=== PATIENT | male | born 1995 | race Caucasian/White ===

== ENCOUNTER 2016-09-01 20:30 | Emergency (ER) | payer BC, MEDICAID ==
[2016-09-01 20:48] VITALS: BP 150/76
--- NOTE | 2016-09-01 21:18 | UC ---
Skin Complaint HPI - HPI Summary HPI Summary: pt is accompanied by mother. Pt reports that he Injected 10 mg of opana on at ~ 1600 in right upper arm . Then injected in left and right antecube spaces with MELISSA. Pt has been not using for the last 6 months then used for the first time again last night. Pt reports that injection sites have become increasingly red and tender over the last 4-8 hours, the left side antebubal space is firm and pt sataes that he woke this moring ant hit the "bump" in right antecubal space and stated that he could tast the "melissa" and felt a "dutton ". He has c/o dry mouth and decreased appetite. - History of Current Complaint Chief Complaint: UCSkin Time Seen by Provider: 09/01/16 21:08 Stated Complaint: LEFT ARM COMPLAINT Hx Obtained From: Patient, Family/Parts Person Onset/Duration: Gradual Onset, Lasting Hours, Still Present Skin Exposure Onset/Duration: Hours Ago Timing: Constant Onset Severity: Mild Current Severity: Moderate Location: Discrete - left and right antecubeal space Character: Redness, Raised, Painful Aggravating: Touch Associated Signs & Symptoms: Positive: Tenderness, Red Streaks Related History: Other: - IV drug use - Allergy/Home Medications Allergies/Adverse Reactions: Allergies Allergy/AdvReac Type Severity Reaction Status Date / Time Penicillins Allergy Hives Verified 09/01/16 20:49 environmental Allergy Runny nose Uncoded 09/01/16 20:49 , itchy eyes Home Medications: Home Medications NK [No Home Medications Reported] 09/01/16 [History Confirmed 09/01/16] Review of Systems Constitutional: Negative Skin: Other - erythema and red streaking, firm moveable "lump" left antecube Eyes: Negative ENT: Other - dry mouth Respiratory: Negative Cardiovascular: Other - rapid heartbeat Gastrointestinal: Negative Genitourinary: Negative Motor: Negative Neurovascular: Negative Musculoskeletal: Negative Neurological: Negative Psychological: Negative All Other Systems Reviewed And Are Negative: Yes PMH/Surg Hx/FS Hx/Imm Hx Previously Healthy: Yes - 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 - Surgical History Surgical History: Yes Surgery Procedure, Year, and Place: graph on leg...tonsilectomy - Family History Known Family History: Positive: Cardiac Disease - Social History Alcohol Use: None Substance Use Type: Synthetic Drugs, Other Substance Use Comment - Amount & Last Used: Opana and Melissa Smoking Status (MU): Never Smoked Tobacco Type: Smokeless Tobacco Physical Exam Triage Information Reviewed: Yes Appearance: Other: - under the influence of drugs Vital Signs: Initial Vital Signs Temp 99.9 F 09/01/16 20:36 Pulse 133 09/01/16 20:36 Resp 24 09/01/16 20:36 BP 150/76 09/01/16 20:36 Pulse Ox 100 09/01/16 20:36 Vital Signs Reviewed: Yes Eyes: Positive: Other: - PERRLA Neck exam: Normal Respiratory Exam: Normal Cardiovascular Exam: Other Cardiovascular: Positive: Tachycardia Musculoskeletal Exam: Normal Neurological Exam: Normal Psychological Exam: Normal Skin Exam: Other - large 6 cm erythematous area left antecube, 32 cm long 1 cm firm moveable mass left antecube; right antecubal area ~ 4-5 cm in diameter Skin: Positive: Other - track lozano left and right antecubal spaces Course/Dx - Course Course Of Treatment: [place] ROSS phoned poison control, recommended that the patient be transferred to Emergency department for further evaluation and treatmentI discussed this with pt and pt's mother and they agreed to go by private car to [facility] ED. - Differential Diagnoses - Skin Complaint Differential Diagnoses: Abscess, Cellulitis - Diagnoses Provider Diagnoses: Cellulitis. abscess. adverse drug reaction. IV drug use - Physician Notification/Consults Discussed Patient Care With: Dr. Mitali Wade Time Discussed With Above Provider: 21:30 Instructed by Provider To: Other - pt was sent by private car to [facility] ED Discharge - Discharge Plan Condition: Stable Disposition: [facility] Discharge Disposition Comment: pt was sent by private car to [facility] Ed for further evluation and treatment. Patient Education Materials: Adverse Drug Reaction (ED), Polysubstance Abuse ( ED), Cellulitis (ED), Abscess (ED) Referrals: ABUNDIO Caballero [Primary Care Provider] -
== END 2016-09-01 21:21 | disposition short-term general hospital (02) ==
LOC: UCCORT 20:30
DX: L03.114 Cellulitis of left upper limb (principal); T50.995A Adverse effect of other drugs, medicaments and biological substances, initial encounter; F11.10 Opioid abuse, uncomplicated
CPT/HCPCS: 99213; G0463

== ENCOUNTER 2016-09-30 18:54 | Emergency (ER) | payer BC, MEDICAID ==
[2016-09-30 19:04] VITALS: BP 137/69
[2016-09-30] MEDS ORDERED: Tetan/Diph/Pertus SYR(Tdap)* 0.5 ML SYR(BOOSTRIX) use SYR IM ONE (19:21)
--- NOTE | 2016-09-30 19:34 | UC ---
Laceration HPI - HPI Summary HPI Summary: patient cut his left middle finger over the PIP joint with a diamond saw operator blade 9 hours prior to arrival, it is superfical and bleeding is controlled. - History Of Current Complaint Chief Complaint: UCLaceration Stated Complaint: LACERATION LEFT MIDDLE FINGER Time Seen by Provider: 09/30/16 18:58 Hx Obtained From: Patient Laceration Location: Finger Mechanism Of Injury: Sharp Trauma Aggravating Factors: Position - Allergies/Home Medications Allergies/Adverse Reactions: Allergies Allergy/AdvReac Type Severity Reaction Status Date / Time Penicillins Allergy Hives Verified 09/30/16 19:03 environmental Allergy Runny nose Uncoded 09/30/16 19:03 , itchy eyes PMH/Surg Hx/FS Hx/Imm Hx Previously Healthy: Yes - Surgical History Surgical History: Yes Surgery Procedure, Year, and Place: graph on leg...tonsilectomy - Family History Known Family History: Positive: Cardiac Disease - Social History Alcohol Use: Occasionally Substance Use Type: Synthetic Drugs, Other Substance Use Comment - Amount & Last Used: Opana and Melissa Smoking Status (MU): Never Smoked Tobacco Type: Smokeless Tobacco Review of Systems Constitutional: Negative Skin: Other - laceration Eyes: Negative ENT: Negative Respiratory: Negative Cardiovascular: Negative Gastrointestinal: Negative Genitourinary: Negative Motor: Negative Neurovascular: Negative Musculoskeletal: Negative Neurological: Negative Psychological: Negative All Other Systems Reviewed And Are Negative: Yes Physical Exam Triage Information Reviewed: Yes Appearance: Well-Appearing, Well-Nourished, Pain Distress Vital Signs: Initial Vital Signs Temp 98.9 F 09/30/16 18:56 Pulse 116 09/30/16 18:56 Resp 20 09/30/16 18:56 BP 137/69 09/30/16 18:56 Vital Signs Reviewed: Yes Eye Exam: Normal ENT Exam: Normal Dental Exam: Normal Neck exam: Normal Respiratory Exam: Normal Cardiovascular Exam: Normal Cardiovascular: Positive: No Murmur, Pulses Normal, Tachycardia Abdominal Exam: Normal Abdomen Description: Positive: Nontender, No Organomegaly, Soft Bowel Sounds: Positive: Present Musculoskeletal Exam: Normal Musculoskeletal: Positive: Strength Intact, ROM Intact, No Edema Neurological Exam: Normal Neurological: Positive: Alert, Muscle Tone Normal Psychological Exam: Normal Skin: Positive: Other - 2 cm laceration over the left track lozano noted on left arm and bilateral hands, patient denies any recent IV drug use, does admit to using in the past. Laceration Repair - Laceration Repair 1 Description: Linear Laceration Size After Repair: Length (cm) - 2 cm Modified For Repair: No Cleansing Completed Via Routine Prep: Yes Irrigation With Pressure Irrigation Device: No Closure Material: Skin Adhesive, SteriStrips Closure Method: Single Layer Suture Of: Skin Laceration Course/Dx - Course/Dx Course Of Treatment: hx obtained, exam performed ,meds reviewed, laceration soaked and glued, 4 steri strips applied tetanus given. - Differential Dx - Laceration/Wound Differental Diagnoses: Laceration Provider Diagnoses: simple laceration to left middle finger Discharge - Discharge Plan Condition: Stable Disposition: HOME Prescriptions: Sulfamethox/Trimethoprim DS* [Bactrim DS 800/160 TAB*] 1 tab PO BID #14 tab Patient Education Materials: Skin Adhesive Care (ED), Laceration (ED) Referrals: ABUNDIO Caballero [Primary Care Provider] - Additional Instructions: 1. keep finger clean and dry, allow the glue and steri strips to fall off on there own. 2. take the medication as prescribed. 3. follow up if you develope any sign of infection, redness, swelling, warmth, unusual drainage. 4. wear the splint for at least 5 days to allow the laceration to heal well.
== END 2016-09-30 19:41 | disposition home or self-care (01) ==
LOC: UCCORT 18:54
DX: S61.213A Laceration without foreign body of left middle finger without damage to nail, initial encounter (principal); W26.8XXA Contact with other sharp object(s), not elsewhere classified, initial encounter; Y93.9 Activity, unspecified; Y92.9 Unspecified place or not applicable; Z23 Encounter for immunization; Z88.0 Allergy status to penicillin
CPT/HCPCS: 12001; 90471; 90715; 99212; G0463

== ENCOUNTER 2017-11-12 12:06 | Emergency (ER) | payer BC, MEDICAID ==
[2017-11-12 12:32] VITALS: BP 125/69
--- NOTE | 2017-11-12 12:42 | UC ---
Hand/Wrist HPI - HPI Summary HPI Summary: 21-year-old male comes to the clinic with a complaint of right hand pain. He closed it in a door 2 days ago. The worst pain is the ulnar aspect over the distal fourth and fifth metacarpals and also the fourth and fifth fingers. There is abrasion over the fifth MCP joint and the fifth finger PIP joint. The pain does radiate up into the wrist. Pain is worse with use of the hand. The patient expected the pain to get better but it's continued. - History Of Current Complaint Chief Complaint: UCUpperExtremity Stated Complaint: RIGHT HAND INJURY Time Seen by Provider: 11/12/17 12:33 Pain Intensity: 7 - Allergies/Home Medications Allergies/Adverse Reactions: Allergies Allergy/AdvReac Type Severity Reaction Status Date / Time codeine Allergy Hives Verified 11/12/17 12:27 Penicillins Allergy Hives Verified 11/12/17 12:27 Home Medications: Home Medications Buprenorphine/Naloxone SL TAB* [Suboxone 8-2 mg SL TAB*] 2 tab SL BID 11/12/17 [ History Confirmed 11/12/17] PMH/Surg Hx/FS Hx/Imm Hx Previously Healthy: Yes - Surgical History Surgical History: Yes Surgery Procedure, Year, and Place: Tonsillectomy, 1997, [place]; Left Hip Skin Graft, ~1995 - Family History Known Family History: Positive: Cardiac Disease - Social History Alcohol Use: None Substance Use Type: None Substance Use Comment - Amount & Last Used: Opana and Melissa Smoking Status (MU): Never Smoked Tobacco Type: Smokeless Tobacco - Immunization History Most Recent Tetanus Shot: 09/30/16 Review of Systems Constitutional: Negative Skin: Other - SEE HPI Eyes: Negative ENT: Negative Respiratory: Negative Cardiovascular: Negative Gastrointestinal: Negative Genitourinary: Negative Motor: Decreased ROM - Pain with range of motion of the right fourth and fifth fingers Neurovascular: Negative Musculoskeletal: Other: - SEE HPI Neurological: Negative Psychological: Negative Is Patient Immunocompromised?: No All Other Systems Reviewed And Are Negative: Yes Physical Exam Triage Information Reviewed: Yes Appearance: Well-Appearing, No Pain Distress, Well-Nourished Vital Signs: Initial Vital Signs Temp 98.2 F 11/12/17 12:24 Pulse 76 11/12/17 12:24 Resp 16 11/12/17 12:24 BP 125/69 11/12/17 12:24 Pulse Ox 99 11/12/17 12:24 Vital Signs Reviewed: Yes Eye Exam: Normal ENT Exam: Normal Neck: Positive: Supple Respiratory: Positive: No respiratory distress Musculoskeletal: Positive: Other: - There is ecchymosis and swelling of the ulnar aspect of the right hand over the distal parts of the fourth and fifth metacarpals. The fifth finger is also slightly swollen and there is abrasions 5 mm over the right dorsal aspect of the PIP of the fifth finger and a healing dry abrasion over the right fifth MCP. Pain with range of motion fingers overlying the same symmetry as the left hand. Neurological Exam: Normal Neurological: Positive: Alert Psychological Exam: Normal Skin: Positive: Other - Ecchymosis right hand Hand/Wrist Course/Dx - Course Course Of Treatment: Order Information: HAND - RIGHT MINIMUM 3 VIEWS. Accession Number: [id number]. CPT: 00778. Indication: Right hand pain. 4 views of the right hand demonstrates no fracture. No other bone or joint abnormality is. noted. IMPRESSION: No fracture of the right hand is noted. __ . <Electronically signed by Letty Sandhu MD in [place]> 11/12/17 1245. Discussed results of the x-ray with the patient. The abrasion over the right fifth PIP was cleaned and dressed and antibiotic ointment applied and a finger splint was placed by nursing. Neurovascularly intact after splinting. F/U WITH PMD IF NOT COMPLETELY IMPROVED. RECHECK SOONER IF WORSE. - Differential Dx/Diagnosis Provider Diagnoses: RIGHT HAND AND 4TH AND 5TH FINGER CRUSH INJURY. Discharge - Sign-Out/Discharge Documenting (check all that apply): Patient Departure All imaging exams completed and their final reports reviewed: Yes - Discharge Plan Condition: Stable Disposition: HOME Patient Education Materials: Crush Injury (ED), Hand Sprain (ED) Referrals: Dia Villagran PA [Primary Care Provider] - Additional Instructions: FOLLOW UP WITH YOUR DOCTOR IF NOT COMPLETELY IMPROVED. GET RECHECKED FOR ANY WORSENING OF YOUR CONDITION OR QUESTIONS OR CONCERNS. - Billing Disposition and Condition Condition: STABLE Disposition: Home
--- NOTE | 2017-11-12 12:48 | RAD ---
Indication: Right hand pain. 4 views of the right hand demonstrates no fracture. No other bone or joint abnormality is noted. IMPRESSION: No fracture of the right hand is noted.
--- OUTSIDE RECORDS SUMMARY | 2017-11-13 05:21 | XMS REPORT ---
:1993 External Reference #:[id number] Author Organization [facility] Address [address] [place] [address] Phone [phone] Care Team Providers Name Role Phone Frank Dick M.D. 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 Primary Care Physician Unavailable Payers Type Date Identification Numbers Payment Provider Subscriber Commercial Effective: Policy Number: [id number] Fernandez Grijalvaterson 2008 Group Number: [id number] [address] PayID: [id number] [place] [address] Medigap Part B Effective: 2011 Policy Number: BC/BS Of [place] Sari Colón [id number] PayID: [id number] [address] [address] [place] [address] Problems Description No Information Social History Description No Information Available Allergies, Adverse Reactions, Alerts Date Description Reaction Status Severity Comments 08/07/2006 NKDA active Medications Medication Date Status Form Strength Qnty SIG Indications Ordering Provider Biaxin Active Tablets 500mg. 28tabs One Tablet Ez 008 PO bid Catherine Li M.D. Prednisone Active 5mg. 36units as Directed Ez 008 By The Physician Venkat Edwards Clarinex Active 5mg 30units one tab po Ez 007 qday prn Catherine Li M.D. Veramyst Active 1units Two Sprays Jennifer Cat M.D. Once A Day Medications Administered in Office Medication Date Status Form Strength Qnty SIG Indications Ordering Provider Injection 01/01/ Administered Injection Rojas Kothari M.D. Injection 12/04/ Administered Injection Rojas 2011 Venkat Kothari Injection 11/06/ Administered Injection Rojas 2011 Venkat Kothari Injection 10/21/ Administered Injection Rojas 2011 Venkat Kothari Injection 10/07/ Administered Injection Rojas 2011 Venkat Kothari Injection 10/07/ Administered Injection Rojas 2011 Venkat Kothari Injection 09/23/ Administered Injection Rojas 2011 Venkat Kothari Injection 09/02/ Administered Injection Rojas 2011 Venkat Kothari Injection 07/24/ Administered Injection Rojas 2011 Venkat Kothari Injection 06/24/ Administered Injection Rojas 2011 Venkat Kothari Injection 06/10/ Administered Injection Rojas 2011 Venkat Kothari Injection 05/27/ Administered Injection Rojas 2011 Venkat Kothari Injection 05/06/ Administered Injection Greta M 2011 Venkat Xiao Injection 04/09/ Administered Injection Rojas 2011 Venkat Kothari Injection 03/26/ Administered Injection Rojas 2011 Venkat Kothari Injection 02/28/ Administered Injection Rojas 2011 Venkat Kothari Injection 02/05/ Administered Injection Rojas 2010 Venkat Kothari Injection 01/10/ Administered Injection Rojas 2010 Venkat Kothari Injection 12/27/ Administered Injection Erendira 2010 Venkat Muñoz Injection 12/13/ Administered Injection Rojas 2010 Venkat Kothari Injection 11/29/ Administered Injection Greta M 2010 Venkat Xiao Injection 11/15/ Administered Injection Rojas 2010 Venkat Kothari Injection 11/01/ Administered Injection Erendira 2010 Venkat Muñoz Injection 10/18/ Administered Injection Rojas 2010 Venkat Kothari Injection 10/02/ Administered Injection Erendira 2010 Venkat Muñoz Injection 09/18/ Administered Injection Kelin Escobar MD Injection 09/04/ Administered Injection Rojas 2010 Venkat Kothari Celestone/Cor 08/02/ Administered Injection Rojas tisone 2010 Saniya [phone] Anshul Robledo cc Injection 06/14/ Administered Injection Ez 2010 Catherine Li M.D. Injection 05/08/ Administered Injection Christopher 2010 Catherine Li M.D. Injection 04/05/ Administered Injection Christopher 2010 Catherine Li M.D. Injection 02/20/ Administered Injection Christopher 2009 Catherine Li M.D. Injection 01/11/ Administered Injection Christopher 2009 Catherine Li M.D. Injection 12/21/ Administered Injection Christopher 2009 Catherine Li M.D. Injection 10/31/ Administered Injection Christopher 2009 Catherine Li M.D. Injection 10/19/ Administered Injection Christopher 2009 Catherine Li M.D. Injection 10/03/ Administered Injection Christopher 2009 Catherine Li M.D. Injection 09/19/ Administered Injection Christopher 2009 Catherine Li M.D. Injection 09/05/ Administered Injection Christopher 2009 Catherine Li M.D. Injection 08/22/ Administered Injection Christopher 2009 Catherine Li M.D. Injection 08/01/ Administered Injection Christopher 2009 Catherine Li M.D. Injection 07/13/ Administered Injection Christopher 2009 Catherine Li M.D. Injection 06/29/ Administered Injection Christopher 2009 Catherine Li M.D. Injection 05/23/ Administered Injection Christopher 2009 Catherine Li M.D. Injection 04/27/ Administered Injection Christopher 2009 Catherine Li M.D. Injection 03/21/ Administered Injection Greta M 2009 Venkat Xiao Injection 02/21/ Administered Injection Christopher 2008 Catherine Li M.D. Injection 01/17/ Administered Injection Christopher 2008 Catherine Li M.D. Injection 12/13/ Administered Injection Christopher 2008 Catherine Li M.D. Injection 11/29/ Administered Injection Christopher 2008 Catherine Li M.D. Injection 11/15/ Administered Injection Christopher 2008 Catherine Li M.D. Injection 11/03/ Administered Injection Christopher 2008 Catherine Li M.D. Injection 10/20/ Administered Injection Christopher 2008 Catherine Li M.D. Injection 10/06/ Administered Injection Christopher 2008 Catherine Li M.D. Injection 09/22/ Administered Injection Christopher 2008 Catherine Li M.D. Injection 09/08/ Administered Injection Christopher 2008 Catherine Li M.D. Injection 08/16/ Administered Injection Christopher 2008 Catherine Li M.D. Injection 08/02/ Administered Injection Johnie 2008 Venkat Horton Injection 07/19/ Administered Injection Christopher 2008 Catherine Li M.D. Injection 07/05/ Administered Injection Christopher 2008 Catherine Li M.D. Injection 06/21/ Administered Injection Christopher 2008 Catherine Li M.D. Injection 06/07/ Administered Injection Christopher 2008 Catherine Li M.D. Injection 04/26/ Administered Injection Christopher 2009 Catherine Li M.D. Injection 03/29/ Administered Injection Johnie 2008 Venkat Horton Injection 03/01/ Administered Injection Christopher 2008 Catherine Li M.D. Injection 02/01/ Administered Injection Christopher 2007 Catherine Li M.D. Injection 01/18/ Administered Injection Christopher 2007 Catherine Li M.D. Injection 01/04/ Administered Injection Christopher 2007 Catherine Li M.D. Injection 12/21/ Administered Injection Christopher 2007 Catherine Li M.D. Injection 12/07/ Administered Injection Christopher 2007 Catherine Li M.D. Injection 11/23/ Administered Injection Christopher 2007 Catherine Li M.D. Injection 11/09/ Administered Injection Christopher 2007 Catherine Li M.D. Injection 10/26/ Administered Injection Christopher 2007 Catherine Li M.D. Injection 10/05/ Administered Injection Christopher 2007 Catherine Li M.D. Injection 09/23/ Administered Injection Christopher 2007 Catherine Li M.D. Injection 09/07/ Administered Injection Christopher 2007 Catherine Li M.D. Injection 08/31/ Administered Injection Christopher 2007 Catherine Li M.D. Injection 08/19/ Administered Injection Christopher 2007 Catherine Li M.D. Injection 08/03/ Administered Injection Christopher 2007 Catherine Li M.D. Injection 07/08/ Administered Injection Christopher 2007 Catherine Li M.D. Injection 06/24/ Administered Injection Christopher 2007 Catherine Li M.D. Injection 06/17/ Administered Injection Christopher 2007 Catherine Li M.D. Injection 06/08/ Administered Injection Christopher 2007 Catherine Li M.D. Injection 06/01/ Administered Injection Christopher 2007 Catherine Li M.D. Injection 05/25/ Administered Injection Christopher 2007 Catherine Li M.D. Injection 05/18/ Administered Injection Christopher 2007 Catherine Li M.D. Injection 05/11/ Administered Injection Christopher 2007 Catherine Li M.D. Injection 05/06/ Administered Injection Christopher 2007 Catherine Li M.D. Injection 04/27/ Administered Injection Christopher 2007 Catherine Li M.D. Injection 04/23/ Administered Injection Christopher 2007 Catherine Li M.D. Injection 04/14/ Administered Injection Christopher 2007 Catherine Li M.D. Injection 04/07/ Administered Injection Christopher 2007 Catherine Li M.D. Injection 04/02/ Administered Injection Christopher 2007 Catherine Li M.D. Injection 03/17/ Administered Injection Christopher 2007 Catherine Li M.D. Injection 03/10/ Administered Injection Christopher 2007 Catherine Li M.D. Injection 03/03/ Administered Injection Christopher 2008 Catherine Li M.D. Injection 02/26/ Administered Injection Christopher 2007 Catherine Li M.D. Injection 02/12/ Administered Injection Christopher 2006 Catherine Li M.D. Injection 01/29/ Administered Injection Christopher 2007 Catherine Li M.D. Injection 01/13/ Administered Injection Christopher 2007 Catherine Li M.D. Injection 01/08/ Administered Injection Christopher 2007 Catherine Li M.D. Injection 01/01/ Administered Injection Christopher 2007 Catherine Li M.D. Injection 12/18/ Administered Injection Christopher 2007 Catherine Li M.D. Injection 12/11/ Administered Injection Christopher 2007 Catherine Li M.D. Injection 12/04/ Administered Injection Christopher 2007 Catherine Li M.D. Injection 11/27/ Administered Injection Christopher 2007 Catherine Li M.D. Injection 11/20/ Administered Injection Christopher 2007 Catherine Li M.D. Injection 11/13/ Administered Injection Christopher 2007 Catherine Li M.D. Injection 11/06/ Administered Injection Christopher 2007 A. Li, M.D. Injection 10/28/ Administered Injection Ez Li M.D. Injection 10/23/ Administered Injection Rojas Kothari M.D. Injection 10/14/ Administered Injection Ez Li M.D. Results Description No Information Procedures Date CPT Code Description Status 01/02/2012 48268 Injection Completed 12/05/2011 92464 Injection Completed 11/07/2011 43537 Injection Completed 10/22/2011 27309 Injection Completed 10/08/2011 71824 Injection Completed 10/08/2011 78961 Injection Completed 09/24/2011 79589 Extract 1-10 Completed 09/24/2011 00697 Injection Completed 09/03/2011 61059 Injection Completed 07/25/2011 99662 Injection Completed 06/25/2011 05728 Injection Completed 06/11/2011 36876 Injection Completed 05/28/2011 84519 Injection Completed 05/07/2011 94298 Injection Completed 04/09/2011 20754 Injection Completed 03/26/2011 75232 Injection Completed 02/28/2011 06787 Injection Completed 02/14/2011 67637 Extract 1-10 Completed 02/05/2011 16870 Injection Completed 01/10/2011 03981 Injection Completed 12/27/2010 08120 Injection Completed 12/13/2010 94572 Injection Completed 11/29/2010 44004 Injection Completed 11/15/2010 67840 Injection Completed 11/01/2010 37480 Injection Completed 10/18/2010 93849 Injection Completed 10/02/2010 27079 Injection Completed 09/18/2010 08239 Injection Completed 09/13/2010 51304 Extract 1-10 Completed 09/04/2010 47168 Injection Completed 06/14/2010 91372 Injection Completed 05/08/2010 21807 Injection Completed 04/05/2010 46853 Injection Completed 02/20/2010 69347 Injection Completed 01/11/2010 42731 Injection Completed 12/21/2009 00789 Injection Completed 10/31/2009 75505 Injection Completed 10/19/2009 13248 Injection Completed 10/03/2009 54711 Injection Completed 09/21/2009 80020 Extract 1-10 Completed 09/19/2009 78908 Injection Completed 09/05/2009 63042 Injection Completed 08/22/2009 10382 Injection Completed 08/01/2009 67706 Injection Completed 07/13/2009 83331 Injection Completed 06/29/2009 33549 Injection Completed 05/23/2009 47599 Injection Completed 04/27/2009 33699 Injection Completed 03/21/2009 96190 Injection Completed 02/21/2009 17615 Injection Completed 02/09/2009 39746 Extract 1-10 Completed 01/17/2009 79608 Injection Completed 12/13/2008 18576 Injection Completed 11/29/2008 41008 Injection Completed 11/15/2008 24818 Injection Completed 11/03/2008 23130 Injection Completed 10/20/2008 87776 Injection Completed 10/06/2008 42402 Injection Completed 09/22/2008 76517 Injection Completed 09/08/2008 63258 Injection Completed 08/16/2008 54367 Injection Completed 08/02/2008 82844 Injection Completed 08/02/2008 21257 Extract 1-10 Completed 07/19/2008 27131 Injection Completed 07/05/2008 30087 Injection Completed 06/21/2008 71097 Injection Completed 06/07/2008 19846 Injection Completed 04/26/2008 67962 Injection Completed 03/29/2008 56061 Injection Completed 03/01/2008 51778 Injection Completed 02/02/2008 92978 Injection Completed 01/19/2008 39305 Injection Completed 01/14/2008 36368 Extract 1-10 Completed 01/05/2008 55721 Injection Completed 12/22/2007 27718 Injection Completed 12/08/2007 24399 Injection Completed 11/24/2007 25645 Injection Completed 11/10/2007 67148 Injection Completed 10/27/2007 21819 Injection Completed 10/06/2007 34328 Injection Completed 09/24/2007 78654 Injection Completed 09/08/2007 52410 Injection Completed 09/02/2007 98997 Extract 1-10 Completed 09/01/2007 85646 Injection Completed 08/20/2007 86726 Injection Completed 08/04/2007 17711 Injection Completed 07/09/2007 98833 Injection Completed 06/25/2007 76247 Injection Completed 06/18/2007 80717 Injection Completed 06/09/2007 25629 Injection Completed 06/02/2007 51190 Injection Completed 05/26/2007 61491 Injection Completed 05/19/2007 26401 Injection Completed 05/12/2007 50649 Injection Completed 05/08/2007 75432 Extract 1-10 Completed 05/07/2007 35204 Injection Completed 04/28/2007 01780 Injection Completed 04/23/2007 23906 Injection Completed 04/14/2007 54804 Injection Completed 04/07/2007 06632 Injection Completed 04/02/2007 19897 Injection Completed 03/17/2007 42583 Injection Completed 03/10/2007 35030 Injection Completed 03/03/2007 02431 Injection Completed 02/26/2007 06989 Injection Completed 02/12/2007 86637 Injection Completed 01/29/2007 04125 Injection Completed 01/13/2007 49301 Injection Completed 01/08/2007 78818 Injection Completed 01/06/2007 27849 Extract 1-10 Completed 01/01/2007 91027 Injection Completed 12/18/2006 47900 Injection Completed 12/11/2006 53769 Injection Completed 12/04/2006 84100 Injection Completed 11/27/2006 91234 Injection Completed 11/20/2006 41870 Injection Completed 11/13/2006 18049 Injection Completed 11/06/2006 96783 Injection Completed 10/28/2006 84272 Injection Completed 10/23/2006 15730 Injection Completed 10/14/2006 61736 Injection Completed 10/09/2006 82042 Extract 1-10 Completed 08/14/2006 61790 Skin Tests Id Completed 08/07/2006 31756 Skin Test Scratch # Of Units ____ Completed Encounters Type Date Location Provider CPT E/M Dx Office Visit 08/02/2010 3:40p [place] [facility] Rojas Kothari M.D. 85967 477.0 477.8 708.3 Office Visit 08/02/2008 8:45a [place] [facility] Johnie Horton M.D. 83364 477.0 477.8 708.3 Office Visit 08/07/2006 9:15a [place] [facility] Ez Li M.D. 16482 477.0 477.8 708.3 Plan of Care No Information Available
--- OUTSIDE RECORDS SUMMARY | 2017-11-13 05:21 | XMS REPORT ---
:1993 External Reference #:[id number] Author Organization [facility] Address [address] [place] [address] Phone [phone] Care Team Providers Name Role Phone Frank Dick M.D. 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 Primary Care Physician Unavailable Payers Type Date Identification Numbers Payment Provider Subscriber Commercial Effective: Policy Number: [id number] Fernandez Grijalvaterson 2008 Group Number: [id number] [address] PayID: [id number] [place] [address] Medigap Part B Effective: 2011 Policy Number: BC/BS Of [place] Sari Colón [id number] PayID: [id number] [address] [place] [address] Problems Description No Information Social History Description [...] 08/02/ Administered Injection Rojas tisone 2010 Saniya [id number] Anshul Robledo cc Injection 06/14/ Administered Injection [...] M.D. Injection 07/08/ Administered Injection Christopher 2007 Cahterine Li M.D. Injection 06/24/ Administered Injection Christopher [...] Injection 05/06/ Administered Injection Christopher 2007 Catherine iL M.D. Injection 04/27/ Administered Injection Christopher 2007 [...] Injection 01/08/ Administered Injection Christopher 2007 Catherine iL M.D. Injection 01/01/ Administered Injection Christopher 2007 [...] Procedures Date CPT Code Description Status 01/02/2012 43429 Injection Completed 12/05/2011 21895 Injection Completed 11/07/2011 88083 Injection Completed 10/22/2011 72674 Injection Completed 10/08/2011 50550 Injection Completed 10/08/2011 30388 Injection Completed 09/24/2011 28457 Extract 1-10 Completed 09/24/2011 35869 Injection Completed 09/03/2011 14812 Injection Completed 07/25/2011 66065 Injection Completed 06/25/2011 99326 Injection Completed 06/11/2011 47202 Injection Completed 05/28/2011 58056 Injection Completed 05/07/2011 22812 Injection Completed 04/09/2011 11563 Injection Completed 03/26/2011 16167 Injection Completed 02/28/2011 71875 Injection Completed 02/14/2011 92023 Extract 1-10 Completed 02/05/2011 77509 Injection Completed 01/10/2011 67897 Injection Completed 12/27/2010 81625 Injection Completed 12/13/2010 12698 Injection Completed 11/29/2010 21864 Injection Completed 11/15/2010 41921 Injection Completed 11/01/2010 86467 Injection Completed 10/18/2010 12416 Injection Completed 10/02/2010 98348 Injection Completed 09/18/2010 97483 Injection Completed 09/13/2010 63792 Extract 1-10 Completed 09/04/2010 43088 Injection Completed 06/14/2010 60818 Injection Completed 05/08/2010 07643 Injection Completed 04/05/2010 21717 Injection Completed 02/20/2010 39302 Injection Completed 01/11/2010 58555 Injection Completed 12/21/2009 47765 Injection Completed 10/31/2009 63900 Injection Completed 10/19/2009 24092 Injection Completed 10/03/2009 85307 Injection Completed 09/21/2009 87168 Extract 1-10 Completed 09/19/2009 65274 Injection Completed 09/05/2009 77194 Injection Completed 08/22/2009 28290 Injection Completed 08/01/2009 65517 Injection Completed 07/13/2009 62491 Injection Completed 06/29/2009 17492 Injection Completed 05/23/2009 40195 Injection Completed 04/27/2009 03865 Injection Completed 03/21/2009 64520 Injection Completed 02/21/2009 49957 Injection Completed 02/09/2009 54832 Extract 1-10 Completed 01/17/2009 81349 Injection Completed 12/13/2008 25728 Injection Completed 11/29/2008 11504 Injection Completed 11/15/2008 19913 Injection Completed 11/03/2008 72297 Injection Completed 10/20/2008 55835 Injection Completed 10/06/2008 39969 Injection Completed 09/22/2008 03662 Injection Completed 09/08/2008 50590 Injection Completed 08/16/2008 65553 Injection Completed 08/02/2008 02509 Injection Completed 08/02/2008 07089 Extract 1-10 Completed 07/19/2008 54212 Injection Completed 07/05/2008 35678 Injection Completed 06/21/2008 28136 Injection Completed 06/07/2008 73798 Injection Completed 04/26/2008 18474 Injection Completed 03/29/2008 33744 Injection Completed 03/01/2008 57481 Injection Completed 02/02/2008 83710 Injection Completed 01/19/2008 28198 Injection Completed 01/14/2008 81117 Extract 1-10 Completed 01/05/2008 43403 Injection Completed 12/22/2007 22594 Injection Completed 12/08/2007 80277 Injection Completed 11/24/2007 34568 Injection Completed 11/10/2007 69821 Injection Completed 10/27/2007 63485 Injection Completed 10/06/2007 61613 Injection Completed 09/24/2007 24598 Injection Completed 09/08/2007 52577 Injection Completed 09/02/2007 56835 Extract 1-10 Completed 09/01/2007 20926 Injection Completed 08/20/2007 16513 Injection Completed 08/04/2007 70524 Injection Completed 07/09/2007 39167 Injection Completed 06/25/2007 05652 Injection Completed 06/18/2007 90696 Injection Completed 06/09/2007 14392 Injection Completed 06/02/2007 41936 Injection Completed 05/26/2007 61168 Injection Completed 05/19/2007 73083 Injection Completed 05/12/2007 96568 Injection Completed 05/08/2007 68211 Extract 1-10 Completed 05/07/2007 76726 Injection Completed 04/28/2007 84594 Injection Completed 04/23/2007 26615 Injection Completed 04/14/2007 45693 Injection Completed 04/07/2007 41364 Injection Completed 04/02/2007 78600 Injection Completed 03/17/2007 66424 Injection Completed 03/10/2007 25918 Injection Completed 03/03/2007 83421 Injection Completed 02/26/2007 32964 Injection Completed 02/12/2007 15776 Injection Completed 01/29/2007 98592 Injection Completed 01/13/2007 89502 Injection Completed 01/08/2007 04323 Injection Completed 01/06/2007 63349 Extract 1-10 Completed 01/01/2007 44599 Injection Completed 12/18/2006 83325 Injection Completed 12/11/2006 18486 Injection Completed 12/04/2006 21905 Injection Completed 11/27/2006 81358 Injection Completed 11/20/2006 90381 Injection Completed 11/13/2006 98641 Injection Completed 11/06/2006 99015 Injection Completed 10/28/2006 97521 Injection Completed 10/23/2006 22059 Injection Completed 10/14/2006 31529 Injection Completed 10/09/2006 99911 Extract 1-10 Completed 08/14/2006 26208 Skin Tests Id Completed 08/07/2006 72942 Skin Test Scratch # Of Units ____ Completed Encounters Type Date Location Provider CPT E/M Dx Office Visit 08/02/2010 3:40p [place] [facility] Rojas Kothari M.D. 52528 477.0 477.8 708.3 Office Visit 08/02/2008 8:45a [place] [facility] Johnie Horton M.D. 40424 477.0 477.8 708.3 Office Visit 08/07/2006 9:15a [place] [facility] Ez Li M.D. 60298 477.0 477.8 708.3 Plan of Care No Information Available
--- OUTSIDE RECORDS SUMMARY | 2017-11-13 05:21 | XMS REPORT ---
:1993 External Reference #:[id number] Author Organization [facility] Address [address] [place] [address] Phone [phone] Care Team Providers Name Role Phone Frank Dick M.D. Care Team Information Reverser Unavailable Sudhakar Christianson M.D. Primary Care Physician Unavailable Payers Type Date Identification Numbers Payment Provider Subscriber Commercial Effective: Policy Number: [id number] Fernandez Grijalvaterson 2008 Group Number: [id number] [address] PayID: [id number] [place] [address] Medigap Part B Effective: 2011 Policy Number: BC/BS Of [place] Sari Colón [id number] PayID: [id number] [address] [address] [place] [address] Problems Description No Information Social History Description [...] Xiao Injection 11/15/ Administered Injection Rojas 2010 Venkta Kothari Injection 11/01/ Administered Injection Erendira 2010 Venkat Muñoz Injection 10/18/ Administered Injection Rojas 2010 Venkat Kothari Injection 10/02/ Administered Injection Erendira 2010 Venkat Muñoz Injection 09/18/ Administered Injection Kelin Escobar MD Injection 09/04/ Administered Injection Rojas 2010 Venkat Kothari Celestone/Cor 08/02/ Administered Injection Rojas tisone 2010 Saniya [phone] Anshul Robledo cc Injection 06/14/ Administered Injection [...] Li, M.D. Injection 10/28/ Administered Injection Ez iL M.D. Injection 10/23/ Administered Injection Rojas Kothari M.D. Injection 10/14/ Administered Injection Ez Li M.D. Results Description No Information Procedures Date CPT Code Description Status 01/02/2012 82474 Injection Completed 12/05/2011 58814 Injection Completed 11/07/2011 00877 Injection Completed 10/22/2011 63814 Injection Completed 10/08/2011 57927 Injection Completed 10/08/2011 92208 Injection Completed 09/24/2011 24343 Extract 1-10 Completed 09/24/2011 24530 Injection Completed 09/03/2011 92753 Injection Completed 07/25/2011 20674 Injection Completed 06/25/2011 41426 Injection Completed 06/11/2011 52273 Injection Completed 05/28/2011 73385 Injection Completed 05/07/2011 63557 Injection Completed 04/09/2011 10439 Injection Completed 03/26/2011 32192 Injection Completed 02/28/2011 19871 Injection Completed 02/14/2011 93073 Extract 1-10 Completed 02/05/2011 73116 Injection Completed 01/10/2011 04734 Injection Completed 12/27/2010 50516 Injection Completed 12/13/2010 30809 Injection Completed 11/29/2010 35062 Injection Completed 11/15/2010 77265 Injection Completed 11/01/2010 47052 Injection Completed 10/18/2010 58439 Injection Completed 10/02/2010 75957 Injection Completed 09/18/2010 57878 Injection Completed 09/13/2010 63619 Extract 1-10 Completed 09/04/2010 17129 Injection Completed 06/14/2010 16898 Injection Completed 05/08/2010 53863 Injection Completed 04/05/2010 56301 Injection Completed 02/20/2010 88697 Injection Completed 01/11/2010 22445 Injection Completed 12/21/2009 45760 Injection Completed 10/31/2009 09102 Injection Completed 10/19/2009 58134 Injection Completed 10/03/2009 11126 Injection Completed 09/21/2009 04100 Extract 1-10 Completed 09/19/2009 38965 Injection Completed 09/05/2009 43576 Injection Completed 08/22/2009 63584 Injection Completed 08/01/2009 96192 Injection Completed 07/13/2009 66154 Injection Completed 06/29/2009 65972 Injection Completed 05/23/2009 45267 Injection Completed 04/27/2009 74928 Injection Completed 03/21/2009 01590 Injection Completed 02/21/2009 76425 Injection Completed 02/09/2009 52098 Extract 1-10 Completed 01/17/2009 47503 Injection Completed 12/13/2008 52467 Injection Completed 11/29/2008 00372 Injection Completed 11/15/2008 92881 Injection Completed 11/03/2008 01007 Injection Completed 10/20/2008 33491 Injection Completed 10/06/2008 49574 Injection Completed 09/22/2008 08720 Injection Completed 09/08/2008 20634 Injection Completed 08/16/2008 31004 Injection Completed 08/02/2008 59832 Injection Completed 08/02/2008 91858 Extract 1-10 Completed 07/19/2008 42007 Injection Completed 07/05/2008 43869 Injection Completed 06/21/2008 34916 Injection Completed 06/07/2008 38244 Injection Completed 04/26/2008 15199 Injection Completed 03/29/2008 58016 Injection Completed 03/01/2008 46821 Injection Completed 02/02/2008 68373 Injection Completed 01/19/2008 05962 Injection Completed 01/14/2008 01640 Extract 1-10 Completed 01/05/2008 19403 Injection Completed 12/22/2007 19795 Injection Completed 12/08/2007 84120 Injection Completed 11/24/2007 69091 Injection Completed 11/10/2007 70636 Injection Completed 10/27/2007 65356 Injection Completed 10/06/2007 82606 Injection Completed 09/24/2007 63217 Injection Completed 09/08/2007 46032 Injection Completed 09/02/2007 76740 Extract 1-10 Completed 09/01/2007 88574 Injection Completed 08/20/2007 99008 Injection Completed 08/04/2007 95782 Injection Completed 07/09/2007 38316 Injection Completed 06/25/2007 96033 Injection Completed 06/18/2007 18877 Injection Completed 06/09/2007 12726 Injection Completed 06/02/2007 82268 Injection Completed 05/26/2007 88196 Injection Completed 05/19/2007 56678 Injection Completed 05/12/2007 02529 Injection Completed 05/08/2007 85909 Extract 1-10 Completed 05/07/2007 34578 Injection Completed 04/28/2007 40592 Injection Completed 04/23/2007 73571 Injection Completed 04/14/2007 36628 Injection Completed 04/07/2007 52908 Injection Completed 04/02/2007 22908 Injection Completed 03/17/2007 80013 Injection Completed 03/10/2007 34385 Injection Completed 03/03/2007 90831 Injection Completed 02/26/2007 67358 Injection Completed 02/12/2007 94151 Injection Completed 01/29/2007 99207 Injection Completed 01/13/2007 49580 Injection Completed 01/08/2007 09251 Injection Completed 01/06/2007 33781 Extract 1-10 Completed 01/01/2007 82707 Injection Completed 12/18/2006 68025 Injection Completed 12/11/2006 93773 Injection Completed 12/04/2006 66291 Injection Completed 11/27/2006 14354 Injection Completed 11/20/2006 63184 Injection Completed 11/13/2006 78068 Injection Completed 11/06/2006 61386 Injection Completed 10/28/2006 67755 Injection Completed 10/23/2006 23855 Injection Completed 10/14/2006 36134 Injection Completed 10/09/2006 05742 Extract 1-10 Completed 08/14/2006 70322 Skin Tests Id Completed 08/07/2006 03205 Skin Test Scratch # Of Units ____ Completed Encounters Type Date Location Provider CPT E/M Dx Office Visit 08/02/2010 3:40p [facility] Rojas Kothari M.D. 36684 477.0 477.8 708.3 Office Visit 08/02/2008 8:45a [facility] Johnie Horton M.D. 98038 477.0 477.8 708.3 Office Visit 08/07/2006 9:15a [facility] Ez Li M.D. 04502 477.0 477.8 708.3 Plan of Care No Information Available
--- OUTSIDE RECORDS SUMMARY | 2017-11-13 05:22 | XMS REPORT ---
:1993 External Reference #:[id number] Author Organization [facility] Address [address] [place] [address] Phone [phone] Care Team Providers Name Role Phone Frank Dick M.D. Care Team Information Shoe Repairman Unavailable Sudhakar Christianson M.D. Primary Care Physician Unavailable Payers Type Date Identification Numbers Payment Provider Subscriber Commercial Effective: Policy Number: [id number] Fernandez Grijalvaterson 2008 Group Number: [id number] [address] PayID: [id number] [place] [address] Medigap Part B Effective: 2011 Policy Number: BC/BS Of NET[employer]IE Sari Colón [id number] PayID: [id number] [address] [address] [place] [address] Problems Description No Information Social History Description [...] 08/02/ Administered Injection Rojas tisone 2010 Saniya [phone] Anshul Robledo cc Injection 06/14/ Administered Injection [...] Injection 11/13/ Administered Injection Christopher 2007 Catherine iL M.D. Injection 11/06/ Administered Injection Christopher 2007 A. Li, M.D. Injection 10/28/ Administered Injection Ez Li M.D. Injection 10/23/ Administered Injection Rojas Kothari M.D. Injection 10/14/ Administered Injection Ez Li M.D. Results Description No Information Procedures Date CPT Code Description Status 01/02/2012 83554 Injection Completed 12/05/2011 92595 Injection Completed 11/07/2011 09695 Injection Completed 10/22/2011 85173 Injection Completed 10/08/2011 00736 Injection Completed 10/08/2011 19297 Injection Completed 09/24/2011 79155 Extract 1-10 Completed 09/24/2011 88204 Injection Completed 09/03/2011 27518 Injection Completed 07/25/2011 56443 Injection Completed 06/25/2011 56594 Injection Completed 06/11/2011 67456 Injection Completed 05/28/2011 91173 Injection Completed 05/07/2011 65257 Injection Completed 04/09/2011 12113 Injection Completed 03/26/2011 29052 Injection Completed 02/28/2011 49518 Injection Completed 02/14/2011 85385 Extract 1-10 Completed 02/05/2011 55700 Injection Completed 01/10/2011 58987 Injection Completed 12/27/2010 43507 Injection Completed 12/13/2010 29982 Injection Completed 11/29/2010 14236 Injection Completed 11/15/2010 19891 Injection Completed 11/01/2010 83977 Injection Completed 10/18/2010 45201 Injection Completed 10/02/2010 82631 Injection Completed 09/18/2010 45714 Injection Completed 09/13/2010 52779 Extract 1-10 Completed 09/04/2010 65150 Injection Completed 06/14/2010 42805 Injection Completed 05/08/2010 93261 Injection Completed 04/05/2010 35458 Injection Completed 02/20/2010 40855 Injection Completed 01/11/2010 09763 Injection Completed 12/21/2009 95135 Injection Completed 10/31/2009 91120 Injection Completed 10/19/2009 93672 Injection Completed 10/03/2009 61903 Injection Completed 09/21/2009 37420 Extract 1-10 Completed 09/19/2009 04932 Injection Completed 09/05/2009 70882 Injection Completed 08/22/2009 02233 Injection Completed 08/01/2009 63358 Injection Completed 07/13/2009 26651 Injection Completed 06/29/2009 99095 Injection Completed 05/23/2009 89802 Injection Completed 04/27/2009 83110 Injection Completed 03/21/2009 64789 Injection Completed 02/21/2009 61926 Injection Completed 02/09/2009 31607 Extract 1-10 Completed 01/17/2009 72918 Injection Completed 12/13/2008 08998 Injection Completed 11/29/2008 09625 Injection Completed 11/15/2008 56505 Injection Completed 11/03/2008 91351 Injection Completed 10/20/2008 24613 Injection Completed 10/06/2008 66615 Injection Completed 09/22/2008 71017 Injection Completed 09/08/2008 23170 Injection Completed 08/16/2008 01952 Injection Completed 08/02/2008 25142 Injection Completed 08/02/2008 28846 Extract 1-10 Completed 07/19/2008 00305 Injection Completed 07/05/2008 27929 Injection Completed 06/21/2008 23772 Injection Completed 06/07/2008 54751 Injection Completed 04/26/2008 51689 Injection Completed 03/29/2008 82605 Injection Completed 03/01/2008 51569 Injection Completed 02/02/2008 99541 Injection Completed 01/19/2008 49744 Injection Completed 01/14/2008 75405 Extract 1-10 Completed 01/05/2008 78576 Injection Completed 12/22/2007 27466 Injection Completed 12/08/2007 32631 Injection Completed 11/24/2007 54175 Injection Completed 11/10/2007 62681 Injection Completed 10/27/2007 71800 Injection Completed 10/06/2007 02119 Injection Completed 09/24/2007 53853 Injection Completed 09/08/2007 48439 Injection Completed 09/02/2007 10800 Extract 1-10 Completed 09/01/2007 53596 Injection Completed 08/20/2007 28751 Injection Completed 08/04/2007 26899 Injection Completed 07/09/2007 44855 Injection Completed 06/25/2007 45157 Injection Completed 06/18/2007 86283 Injection Completed 06/09/2007 74110 Injection Completed 06/02/2007 40618 Injection Completed 05/26/2007 02422 Injection Completed 05/19/2007 93732 Injection Completed 05/12/2007 59959 Injection Completed 05/08/2007 85332 Extract 1-10 Completed 05/07/2007 78799 Injection Completed 04/28/2007 23903 Injection Completed 04/23/2007 87764 Injection Completed 04/14/2007 55274 Injection Completed 04/07/2007 01353 Injection Completed 04/02/2007 61813 Injection Completed 03/17/2007 54571 Injection Completed 03/10/2007 89914 Injection Completed 03/03/2007 71203 Injection Completed 02/26/2007 18981 Injection Completed 02/12/2007 53189 Injection Completed 01/29/2007 94982 Injection Completed 01/13/2007 28958 Injection Completed 01/08/2007 36113 Injection Completed 01/06/2007 61890 Extract 1-10 Completed 01/01/2007 08993 Injection Completed 12/18/2006 83745 Injection Completed 12/11/2006 46932 Injection Completed 12/04/2006 30976 Injection Completed 11/27/2006 80100 Injection Completed 11/20/2006 40782 Injection Completed 11/13/2006 28368 Injection Completed 11/06/2006 95116 Injection Completed 10/28/2006 54662 Injection Completed 10/23/2006 93939 Injection Completed 10/14/2006 83642 Injection Completed 10/09/2006 00655 Extract 1-10 Completed 08/14/2006 52410 Skin Tests Id Completed 08/07/2006 77453 Skin Test Scratch # Of Units ____ Completed Encounters Type Date Location Provider CPT E/M Dx Office Visit 08/02/2010 3:40p [facility] Rojas Kothari M.D. 12010 477.0 477.8 708.3 Office Visit 08/02/2008 8:45a [facility] Johnie Horton M.D. 56117 477.0 477.8 708.3 Office Visit 08/07/2006 9:15a [facility] Ez Li M.D. 57687 477.0 477.8 708.3 Plan of Care No Information Available
== END 2017-11-12 13:32 | disposition home or self-care (01) ==
LOC: UCCORT 12:06
DX: S67.194A Crushing injury of right ring finger, initial encounter (principal); S67.196A Crushing injury of right little finger, initial encounter; S67.21XA Crushing injury of right hand, initial encounter; W23.0XXA Caught, crushed, jammed, or pinched between moving objects, initial encounter; Y93.9 Activity, unspecified; Y92.9 Unspecified place or not applicable; Z88.0 Allergy status to penicillin; Z88.5 Allergy status to narcotic agent
CPT/HCPCS: 99212; G0463

== ENCOUNTER 2017-11-24 15:42 | Emergency (ER) | payer BC, MEDICAID ==
[2017-11-24 16:00] VITALS: BP 119/76
--- NOTE | 2017-11-24 16:45 | UC ---
UC General HPI - HPI Summary HPI Summary: pt complains of a cough for the past several days. he does smoke. he states on occasion it is productive. he denies any fever or chills. he complains of a very mild sore throat. - History of Current Complaint Chief Complaint: UCRespiratory Stated Complaint: COUGH, CONGESTION Hx Obtained From: Patient Onset/Duration: Gradual Onset Timing: Constant Onset Severity: Mild Pain Intensity: 0 Associated Signs & Symptoms: Positive: Cough. Negative: Abdominal Pain, Confusion, Chest Pain, Decreased Responsiveness, Dizziness, Diarrhea, Dysuria, Decreased Oral Intake, Diaphoresis, Edema, Fever, Headache, Nausea, Palpitations , SOB, Vomiting, Wheezing, Weakness - Allergy/Home Medications Allergies/Adverse Reactions: Allergies Allergy/AdvReac Type Severity Reaction Status Date / Time codeine Allergy Hives Verified 11/24/17 16:01 Penicillins Allergy Hives Verified 11/24/17 16:01 PMH/Surg Hx/FS Hx/Imm Hx Previously Healthy: Yes - Surgical History Surgical History: Yes Surgery Procedure, Year, and Place: Tonsillectomy, 1997, [place]; Left Hip Skin Graft, ~1995 - Family History Known Family History: Positive: Cardiac Disease - Social History Alcohol Use: None Substance Use Type: None Substance Use Comment - Amount & Last Used: Opana and Melissa Smoking Status (MU): Heavy Every Day Tobacco Smoker Type: Smokeless Tobacco - Immunization History Most Recent Tetanus Shot: 09/30/16 Review of Systems Constitutional: Negative Skin: Negative Eyes: Negative ENT: Sore Throat Respiratory: Cough Cardiovascular: Negative Gastrointestinal: Negative Motor: Negative Neurovascular: Negative Musculoskeletal: Negative Neurological: Negative Psychological: Negative All Other Systems Reviewed And Are Negative: No Physical Exam Triage Information Reviewed: Yes Appearance: Well-Appearing, No Pain Distress, Well-Nourished Vital Signs: Initial Vital Signs Temp 97.6 F 11/24/17 15:54 Pulse 100 11/24/17 15:54 Resp 16 11/24/17 15:54 BP 119/76 11/24/17 15:54 Pulse Ox 100 11/24/17 15:54 Vital Signs Reviewed: Yes Eye Exam: Normal Eyes: Positive: Conjunctiva Clear ENT: Positive: Normal ENT inspection Dental Exam: Normal Neck: Positive: Supple, Nontender Respiratory Exam: Normal Respiratory: Positive: Chest non-tender, Lungs clear, Normal breath sounds, No respiratory distress Cardiovascular Exam: Normal Cardiovascular: Positive: RRR Abdominal Exam: Normal Abdomen Description: Positive: Nontender, Soft Bowel Sounds: Positive: Present Musculoskeletal Exam: Normal Musculoskeletal: Positive: Strength Intact Neurological: Positive: Alert Psychological Exam: Normal Skin: Negative: rashes Course/Dx - Differential Dx - Multi-Symptom Provider Diagnoses: upper respiratory infection Discharge - Sign-Out/Discharge Documenting (check all that apply): Patient Departure All imaging exams completed and their final reports reviewed: No - Discharge Plan Condition: Stable Disposition: HOME Prescriptions: Albuterol HFA INHALER* [Ventolin HFA Inhaler*] 2 puff INH Q4H PRN #1 mdi MDD 12 PRN Reason: Shortness Of Breath Azithromyxin GO (NF) [Z-Go (Zithromax) 250 mg tabs #6] 2 tab PO .TODAY, THEN 1 DAILY #6 tab predniSONE TAB* [Deltasone 20 MG TAB*] 60 mg PO DAILY #15 tab Spacer/Holding Chamber (NF) [Easivent CHAMBER (NF)] 1 canister INH Q4HR #1 device MDD 6 Patient Education Materials: Upper Respiratory Infection (ED) Referrals: Dia Villagran PA [Primary Care Provider] - Additional Instructions: Take all medications as previously instructed. It is important to follow up with your primary care physician. Try to stop smoking. Get your flu shot. - Billing Disposition and Condition Condition: STABLE Disposition: Home
== END 2017-11-24 16:54 | disposition home or self-care (01) ==
LOC: UCCORT 15:42
DX: J06.9 Acute upper respiratory infection, unspecified (principal); Z88.0 Allergy status to penicillin; Z88.5 Allergy status to narcotic agent; F17.210 Nicotine dependence, cigarettes, uncomplicated
CPT/HCPCS: 99212; G0463